=== PATIENT | female | born 1985 | race Caucasian/White ===

== ENCOUNTER 2023-10-14 21:04 | Emergency (ER) | payer BC ==
[~2023-10-14] VITALS: Ht 162.6 cm; Wt 59.1 kg
[2023-10-14 21:13] VITALS: TEMP 97.2
[2023-10-14 21:28] LABS: BASO # 0.1 K/mm3 (0.0-0.2); BASO % 1.2 % (0.0-2.0); EOS # 0.2 K/mm3 (0.0-0.7); EOS % 2.2 % (0.0-4.0); GRAN # 4.1 K/mm3 (1.4-6.5); HEMATOCRIT 39.4 % (37.0-47.0); HEMOGLOBIN 12.9 g/dl (12.5-16.0); LYMPH # 2.6 K/mm3 (1.2-3.4); LYMPH % 34.6 % (20.0-51.0); MEAN CELL VOLUME 90 fl (80.0-100.0); MEAN CORPUSCULAR HEMOGLOBIN 30 pg (27-31); MEAN CORPUSCULAR HGB CONC 33 g/dl (33.0-37.0); MEAN PLATELET VOLUME 11.2 fl (7.4-10.4); MONO # 0.6 K/mm3 (0.1-0.6); MONO % 7.6 % (1.7-9.3); PLATELET COUNT 246 K/mm3 (130-400); RED BLOOD COUNT 4.38 M/mm3 (4.10-5.30); REDCELL DISTRIBUTION WIDTH-CV 12.6 % (11.5-14.5)
[2023-10-14] MEDS ORDERED: NS 1,000 ML IV ONE (21:30)
[2023-10-14 21:46] LABS: ALANINE AMINOTRANSFERASE 12 U/L (0-55); ALKALINE PHOSPHATASE 68 U/L (40-150); ANION GAP 11 mmol/L (7-16); AST,SGOT 17 U/L (5-34); BILIRUBIN,TOTAL 0.4 mg/dL (0.2-1.2); BLOOD UREA NITROGEN 10 mg/dL (7-19); CALCIUM 9.8 mg/dL (8.4-10.2); CHLORIDE 107 mEq/L (98-107); CREATININE, serum 0.69 mg/dL (0.57-1.11); GLUCOSE 108 mg/dL (70-99); POTASSIUM 3.2 mEq/L (3.5-4.5); SODIUM 140 mEq/L (136-145); TOTAL PROTEIN 7.4 g/dl (6.2-8.1)
[2023-10-14 21:58] LABS: TROPONIN-I < 0.010 ng/mL (0.00-0.033)
[2023-10-14 23:16] VITALS: BP 117/71; PULSE 85
== END 2023-10-14 23:16 | disposition home or self-care (01) ==
LOC: COL.ER 21:04
PROVIDERS: Personal Emergency Response Attendant
DX: O99.411 Diseases of the circulatory system complicating pregnancy, first trimester (principal); R07.89 Other chest pain; O09.511 Supervision of elderly primigravida, first trimester; Z3A.01 Less than 8 weeks gestation of pregnancy
CPT/HCPCS: J7030